=== PATIENT | female | born 1965 | race Caucasian/White ===

== ENCOUNTER → 2020-09-10 | Day surgery (SDC) | payer OTHER ==
[~2020-09-10] MED LIST: ABILIFY5 MG PO; AMBIEN10 MG PO; BACLOFEN 10MG T10 MG PO; BENTYL10 MG PO; CELEXA20 MG PO; CENTRUM ADULTS1 EACH PO; CLONAZEPAM0.5 MG PO; COZAAR50 MG PO; DRONABINOL2.5 MG PO; GABAPENTIN600 MG PO; HCTZ12.5 MG PO; LASIX20 MG PO; MYLICON80 MG PO; OXYCODON-ACETA1 EAC1 PO; PERCOCET 5-3251 EACH PO; PRILOSEC20 MG PO; TOPROL XL 50 MG50 MG PO; VITAMIN B12 PO; VITAMIN D3 PO; ZYRTEC10 M3 PO
[2020-09-10 10:14] LABS: HCG (URINE) SCREEN NEGATIVE (NEGATIVE)
== END | disposition home or self-care (01) ==
LOC: FAS 09:32
PROVIDERS: Anesthesiology
DX: K42.9 Umbilical hernia without obstruction or gangrene (principal); F41.9 Anxiety disorder, unspecified; F32.9 Major depressive disorder, single episode, unspecified; K21.9 Gastro-esophageal reflux disease without esophagitis; I10 Essential (primary) hypertension; G89.29 Other chronic pain; M54.9 Dorsalgia, unspecified; M79.606 Pain in leg, unspecified; K74.60 Unspecified cirrhosis of liver; E78.00 Pure hypercholesterolemia, unspecified; E55.9 Vitamin D deficiency, unspecified; E66.01 Morbid (severe) obesity due to excess calories; Z68.41 Body mass index [BMI] 40.0-44.9, adult; Z79.899 Other long term (current) drug therapy; Z88.2 Allergy status to sulfonamides; Z88.5 Allergy status to narcotic agent; Z98.84 Bariatric surgery status
CPT/HCPCS: 84703; 93005; J0690; J1170; J2250; J2405; J2704; J3010; J7120